=== PATIENT | female | born 1990 | race American Indian/Alaskan Native ===

== ENCOUNTER 2017-11-19 14:30 | Emergency (ER) | payer OTHER ==
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
[2017-11-19] MEDS ORDERED: NORCO 5/325 PO ONE (18:05)
[2017-11-19] MEDS ORDERED: MOTRIN PO ONE (18:05)
[2017-11-19] MEDS ORDERED: FLEXERIL PO ONE (18:05)
[2017-11-19] MEDS ORDERED: BOOSTRIX IM ONE (19:29)
[2017-11-19] MEDS ORDERED: TRIPLE ANTIBIOTIC TP ONE (19:29)
[2017-11-19 19:58] VITALS: BP 122/62
== END 2017-11-19 19:56 | disposition home or self-care (01) ==
LOC: ED 14:30
DX: S61.411A Laceration without foreign body of right hand, initial encounter (principal); M25.50 Pain in unspecified joint; F12.10 Cannabis abuse, uncomplicated; V89.2XXA Person injured in unspecified motor-vehicle accident, traffic, initial encounter; Y93.89 Activity, other specified; Y99.8 Other external cause status; Y92.89 Other specified places as the place of occurrence of the external cause; Z79.899 Other long term (current) drug therapy
CPT/HCPCS: 90471; 90715; A6250

== ENCOUNTER 2020-02-08 19:01 | Emergency (ER) | payer SELFPAY | END 2020-02-08 20:16 | disposition left against medical advice (07) | LOC: ED 19:01 | DX: K13.79 Other lesions of oral mucosa (principal); Z53.21 Procedure and treatment not carried out due to patient leaving prior to being seen by health care provider ==

== ENCOUNTER 2021-06-06 17:00 | Emergency (ER) | payer OTHER | END 2021-06-06 17:30 | disposition left against medical advice (07) | LOC: ED 17:00 | DX: R51.9 Headache, unspecified (principal); Z53.21 Procedure and treatment not carried out due to patient leaving prior to being seen by health care provider ==